=== PATIENT | male | born 1995 | race African-American/Black ===

== ENCOUNTER 2019-01-17 11:42 | Emergency (ER) | payer OTHER ==
[2019-01-17 11:48] VITALS: BP 145/75
[2019-01-17] MEDS ORDERED: LIDOCAINE 1% INJ-PF (10 MG/ML) 30 ML SDV IM ONE (12:30)
[2019-01-17] MEDS ORDERED: AZITHROMYCIN 250 MG TABLET PO ONE (12:30)
[2019-01-17] MEDS ORDERED: CEFTRIAXONE INJ 250 MG VIAL IM ONE (12:30)
--- NOTE | 2019-01-17 12:33 | ER Document Report ---
HPI - HPI Time Seen by Provider: 01/17/19 12:10 Pain Level: Denies Notes: Patient is an otherwise healthy 23-year-old male presented to the emergency department with chief complaint of STD check. Patient denies any known exposure, he does report that his told him she tested positive for chlamydia but he states they have not had intercourse for quite some time. Patient denies any dysuria or penile drainage. - CONSTITUTIONAL Constitutional: DENIES: Fever, Chills - EENT EENT: DENIES: Sore Throat, Ear Pain, Eye problems - NEURO Neurology: DENIES: Headache - CARDIOVASCULAR Cardiovascular: DENIES: Chest pain - RESPIRATORY Respiratory: DENIES: Trouble Breathing, Coughing - GASTROINTESTINAL Gastrointestinal: DENIES: Abdominal Pain, Black / Bloody Stools - URINARY Urinary: DENIES: Dysuria, Urgency, Frequency Past Medical History - General Information source: Patient - Social History Smoking Status: Never Smoker Chew tobacco use (# tins/day): No Frequency of alcohol use: None Drug Abuse: None Family History: Reviewed & Not Pertinent Patient has suicidal ideation: No Patient has homicidal ideation: No - Medical History Medical History: Negative Renal/ Medical History: Denies: Hx Peritoneal Dialysis Surgical Hx: Negative - Immunizations Immunizations up to date: Yes Vertical Provider Document - CONSTITUTIONAL Notes: PHYSICAL EXAMINATION: GENERAL: Well-appearing, well-nourished and in no acute distress. HEAD: Atraumatic, normocephalic. EYES: Pupils equal round extraocular movements intact, conjunctiva are normal. ENT: Nares patent NECK: Normal range of motion LUNGS: No respiratory distress Musculoskeletal: Normal range of motion NEUROLOGICAL: Normal speech, normal gait. PSYCH: Normal mood, normal affect. SKIN: Warm, Dry, normal turgor, no rashes or lesions noted. - INFECTION CONTROL TRAVEL OUTSIDE OF THE [place] IN LAST 30 DAYS: No Course - Re-evaluation Re-evalutation: Chlamydia and gonorrhea testing are pending. Patient treated with Rocephin and azithromycin. Patient will be discharged home in stable condition. - Vital Signs Vital signs: Temp Pulse Resp BP Pulse Ox 98.7 F 72 16 145/75 H 99 01/17/19 11:47 01/17/19 11:47 01/17/19 11:47 01/17/19 11:47 01/17/19 11:47 Discharge - Discharge Clinical Impression: STD exposure Condition: Stable Disposition: HOME, SELF-CARE Additional Instructions: You were seen in the emergency department today for possible STD exposure. You were treated prophylactically with antibiotics. If the test results are positive someone will call you in the next couple of hours. If they are negative we will not call you. If the test results are positive please refrain from unprotected sexual intercourse for 10 days. Have any and all partners get rechecked if testing is positive.
[2019-01-17 14:22] LABS: CHLAM PCR NOT DETECTED (NOT DETECT)
== END 2019-01-17 12:48 | disposition home or self-care (01) ==
LOC: ER 11:42
DX: Z20.2 Contact with and (suspected) exposure to infections with a predominantly sexual mode of transmission (principal)
CPT/HCPCS: 87491; 87591; 99283